=== PATIENT | female | born 1970 | race Caucasian/White ===

== ENCOUNTER 2016-11-12 05:24 | Day surgery (SDC) | payer OTHER ==
[~2016-11-12] VITALS: Ht 152.4 cm; Wt 83.6 kg
--- NOTE | ~2016-11-12 | O ---
[address] [address] OPERATIVE REPORT Name: ALFONSO SOFIA Room #: DEP [facility]#: [id number] Admission: 11/12/16 Attend Phys: Joel Clayton MD Discharge: 11/12/16 Date of : 70 Report #: [id number] THIS REPORT FOR: //name// CC: [place] physician/PCP Joel Clayton DATE OF SERVICE: 11/12/2016 SERVICE: Orthopedics. FACILITY: [facility] SURGEON: Joel Clayton MD OPTICAL MANAGER: None. PREOPERATIVE DIAGNOSES: 1. Right hip pain. 2. Right hip impingement. 3. Right hip labral tear. 4. Right hip greater trochanteric pain syndrome. POSTOPERATIVE DIAGNOSES: 1. Right hip pain. 2. Right hip impingement. 3. Right hip labral tear. 4. Right hip greater trochanteric pain syndrome. 5. 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 PROCEDURES: 1. Right hip arthroscopy with limited acetabuloplasty, subspine 2. Right hip arthroscopic labral repair 3. Right hip arthroscopic cam osteoplasty COMPLICATIONS: None. DRAINS: None. SPECIMENS: None. ANESTHESIA TYPE: Single shot regional nerve block with general endotracheal. ESTIMATED BLOOD LOSS: 5 mL. TRACTION TIME: [address] [address] OPERATIVE REPORT Name: ALFONSO SOFIA Room #: DEP [facility]#: [id number] Admission: 11/12/16 Attend Phys: Joel Clayton MD Discharge: 11/12/16 Date of : 70 Report #: [id number] FINDINGS: 1. Small area of grade 2 chondromalacia of the weightbearing portion of the acetabular dome measuring approximately 3 mm x 3 mm. 2. Unstable labral tear with chondral debonding at the 12 o'clock position, labral tear extended to the 10 o'clock position. 3. Labral repair performed with Asaf NanoTack suture anchor x 3 with labral tape. 4. Small Cam osteoplasty performed for Cam lesion located in the 15-70 degree range. 5. Capsular repair performed with #2 Vicryl x 4. HISTORY AND INDICATIONS: The patient is a 46-year-old female who was injured on her job, sustained a right hip injury that was treated conservatively for extended period of time. She had imaging that was consistent with a labral tear. She also had low normal acetabular coverage with lateral center edge angle of approximately 25 degrees. She had evidence of a small Cam deformity on the femoral side with alpha angle of approximately 70 degrees. Conservative measures ultimately failed and she wished to have definitive treatment. The risks, benefits, alternatives and indications for surgery were discussed with her in detail. Risks include but not limited to pain, bleeding, infection, injury to nerves or blood vessels, persistent pain despite surgical intervention, failure of any repairs, reconstruction, progression of any preexisting chondral injury, stiffness, need for further surgery including revision as well as complications related to anesthesia such as stroke, heart attack, pulmonary complications, thromboembolic disease and . Despite these risks, she wished to proceed. PROCEDURE IN DETAIL: After right lower extremity was correctly identified in preoperative holding area as the operative extremity, the patient was taken to the operating room, placed supine on operating table and general endotracheal anesthesia was induced. The patient had received fascia iliaca block by the anesthesia team. General endotracheal anesthesia was induced without complication. All bony prominences and subcutaneous nerves were padded appropriately. Traction boots were placed in bilateral lower extremities and we mapped out the femoral head and neck junction under fluoroscopy, identifying a small Cam bump which correlated with the preoperative images. The hip was confirmed to be distractable under traction and then traction was let down. The right lower extremity was prepped and draped in standard sterile fashion. Time-out procedure was performed. Prophylactic antibiotics with 900 mg of clindamycin were administered at appropriate time. Traction was applied to right lower extremity. Total traction time was 64 minutes. A standard anterolateral viewing portal was established followed by mid anterior working portal under direct arthroscopic visualization. A transverse capsulotomy was performed and then diagnostic arthroscopy revealed intact articular cartilage on the weightbearing portion of the femoral head as [address] [address] OPERATIVE REPORT Name: ALFONSO SOFIA Room #: DEP [facility].R[facility]#: [id number] Admission: 11/12/16 Attend Phys: Joel Clayton MD Discharge: 11/12/16 Date of : 70 Report #: [id number] well as the majority of the acetabular cartilage. There was a full thickness labral tear at about the 1:30 position on this right hip and then there was unstable wave sign with chondral debonding and instability of the acetabular cartilage from focus at the 12 o'clock position, extending laterally to about 11 o'clock. The capsule was reflected off the dorsal side of the labrum to better expose the acetabular rim. Due to the patient's limited acetabular coverage, a rim resection was not performed. There was a small subspine impingement lesion which was resected at the level of the anterior inferior iliac spine. The bur was used to abrade the acetabular rim to allow for bleeding environment for acetabular labral repair healing and then the repair was performed. The first anchor was placed at the 1 o'clock position and the second at 12 o'clock and third at the 11 o'clock position and mattress sutures were used to perform a labral base refixation. Stable repair was achieved. Limited chondroplasty was performed at the chondral labral junction at this point and then traction was let down. There was noted to be grade 2 and 3 chondromalacia of the femoral head and an area extending for about mm parallel to the labrum and proximal to distal by 5-6 mm. This extended just up to the edge of the Cam bump. The capsulotomy then had #2 sutures placed as traction stitches to allow better visualization of the Cam lesion and then a standard technique was used to perform the Cam resection. Final x-rays were taken to confirm that complete resection had been performed and then the capsular repair was performed. A total of four #2 Vicryls were used to close the small vertical portion of the T capsulotomy with 1 suture and then 3 sutures in the larger transverse portion of the T capsulotomy. Arthroscopic debris had been lavaged out of the hip prior to capsular closure and then the instruments were removed from the hip, the irrigation suctioned and then the portal sites were closed with a deep followed by superficial 3-0 Monocryl suture. Sterile dressing was applied. The patient was awakened from anesthesia, taken to recovery room in stable condition. There were no complications and all counts were recorded as correct. <ELECTRONICALLY SIGNED> By: Joel Clayton MD 11/13/16 [id number] Joel Clayton MD /[place]
[~2016-11-12 05:24] MED LIST: CLARITIN10 MG PO; OMEPRAZOLE 20 M20 M1 PO; SYMBICORT160 MCG/4. INH; TUMS PO
[2016-11-12 07:00] VITALS: BP 127/87
[2016-11-12 11:44] VITALS: BP 127/87
== END 2016-11-12 12:00 | disposition home or self-care (01) ==
LOC: TBA 05:24 → OR 05:24 → TBA 05:25 → OR 08:28
DX: S73.101A Unspecified sprain of right hip, initial encounter (principal); M25.851 Other specified joint disorders, right hip; M94.251 Chondromalacia, right hip; J44.9 Chronic obstructive pulmonary disease, unspecified; M70.61 Trochanteric bursitis, right hip; K21.9 Gastro-esophageal reflux disease without esophagitis; J45.909 Unspecified asthma, uncomplicated; F17.210 Nicotine dependence, cigarettes, uncomplicated; X58.XXXA Exposure to other specified factors, initial encounter; Y93.89 Activity, other specified; Y92.89 Other specified places as the place of occurrence of the external cause; Y99.8 Other external cause status; Z90.710 Acquired absence of both cervix and uterus; Z90.49 Acquired absence of other specified parts of digestive tract
CPT/HCPCS: 50010; 50101; 50386; 51038; 51445; 51538; 52298; 56524; 56527; 57092; 62110; 62900; 70005